=== PATIENT | male | born 1990 | race Hispanic/Latino ===

== ENCOUNTER 2025-05-07 18:12 | Emergency (ER) | payer BC ==
[2025-05-07] MEDS ORDERED: predniSONE 20 MG TAB ONE (18:52)
[2025-05-07] MEDS ORDERED: Amoxicillin/Potassium Clav 875 MG TAB ONE (18:52)
== END 2025-05-07 19:01 | disposition home or self-care (01) ==
LOC: MADERS 18:12
DX: J02.8 Acute pharyngitis due to other specified organisms (principal); B96.89 Other specified bacterial agents as the cause of diseases classified elsewhere; K12.2 Cellulitis and abscess of mouth
CPT/HCPCS: 99282; J7512